=== PATIENT | female | born 1950 ===

== ENCOUNTER 2022-08-24 09:34 | Inpatient (IN) | payer OTHER ==
[~2022-08-24] VITALS: Ht 157.5 cm; Wt 63.5 kg
[2022-08-25] MEDS ORDERED: GLIPIZIDE XL2.5 MG PO (08:06)
[2022-08-25] MEDS ORDERED: PENTOXIFYLLINE400 MG PO (08:06)
[2022-08-25] MEDS ORDERED: COZAAR100 MG PO (08:06)
[2022-08-25] MEDS ORDERED: ACID REDUCER20 M1 PO (08:07)
[2022-08-30] MEDS ORDERED: PERCOCET 5-3251 EACH PO (11:29)
[2022-08-30] MEDS ORDERED: MEDROLPACK PO (11:29)
[2022-08-30] MEDS ORDERED: AMOX-CLAV 875-1 EACH PO (11:30)
[2022-08-30] MEDS ORDERED: NEURONTIN800 MG PO (11:32)
[2022-08-30] MEDS ORDERED: COLACE100 MG PO (11:32)
== END 2022-09-01 15:42 | DRG 455 ==
LOC: SURH 08-30 05:05 → O/R 08-30 05:05 → SURG 08-30 07:00 → OB/GYN 08-30 17:23 → SURH 08-30 19:05
PROVIDERS: ADMIT Orthopaedic Surgery Orthopaedic Surgery of the Spine; ATTEND Orthopaedic Surgery Orthopaedic Surgery of the Spine
PROC: 0SG0071 Fusion of Lumbar Vertebral Joint with Autologous Tissue Substitute, Posterior Approach, Posterior Column, Open Approach (ICD-10-PCS; 2022-08-30)
PROC: 0ST20ZZ Resection of Lumbar Vertebral Disc, Open Approach (ICD-10-PCS; 2022-08-30)
PROC: 07DR0ZZ Extraction of Iliac Bone Marrow, Open Approach (ICD-10-PCS; 2022-08-30)
PROC: 4A12X4Z Monitoring of Cardiac Electrical Activity, External Approach (ICD-10-PCS; 2022-08-30)
PROC: XRGB0R7 Fusion of Lumbar Vertebral Joint using Custom-Made Anatomically Designed Interbody Fusion Device, Open Approach, New Technology Group 7 (ICD-10-PCS; principal; 2022-08-30 07:00)
DX: M48.062 Spinal stenosis, lumbar region with neurogenic claudication (principal); M43.16 Spondylolisthesis, lumbar region; M41.56 Other secondary scoliosis, lumbar region; M81.8 Other osteoporosis without current pathological fracture; E11.9 Type 2 diabetes mellitus without complications; I10 Essential (primary) hypertension; E78.5 Hyperlipidemia, unspecified